=== PATIENT | male | born 1985 | race Caucasian/White ===

== ENCOUNTER 2020-10-22 15:01 | Emergency (ER) | payer BC ==
[~2020-10-22] VITALS: Ht 182.9 cm; Wt 77.1 kg
[2020-10-22] MEDS ORDERED: BACTRIM DS TAB1 EACH PO (16:05)
[2020-10-22 16:19] VITALS: BP 122/70
== END 2020-10-22 16:19 | disposition home or self-care (01) ==
LOC: ER 15:01
DX: S61.231A Puncture wound without foreign body of left index finger without damage to nail, initial encounter (principal); W34.09XA Accidental discharge from other specified firearms, initial encounter; Y93.89 Activity, other specified; Y92.89 Other specified places as the place of occurrence of the external cause; Y99.8 Other external cause status